=== PATIENT | female | born 1945 | race Caucasian/White ===

== ENCOUNTER → 2018-04-04 | Outpatient (CLI) | payer MEDICARE ==
--- NOTE | 2018-04-05 08:05 | US ---
EXAMINATION TYPE: US pelvis complete transvag DATE OF EXAM: 04/04/2018 COMPARISON: NONE CLINICAL HISTORY: Uterine Prolapse N81.2. TECHNIQUE: Transvaginal (TV) and Transabdominal (TA) . Transabdominal sonographic images of the pel vis were acquired. Transvaginal sonographic images were medically necessary to better assess the fol lowing anatomy: bulky uterus and ovaries. Date of LMP: postmenopausal, no HRT EXAM MEASUREMENTS: Uterus: 7.8 x 4.5 x 5.5 cm Endometrial Stripe: 0.7 cm Right Ovary: not identified Left Ovary: not identified 1. Uterus: Anteverted fibroid right anterior measures 2.7 x 2.8 x 3.2 cm 2. Endometrium: measures 0.7 cm, thickened. 3. Right Ovary: not identified 4. Left Ovary: not identified 5. Bilateral Adnexa: wnl 6. Posterior cul-de-sac: no free fluid IMPRESSION: 1. Diffuse heterogeneity of the myometrium with probable leiomyoma of the anterior fundal and right l ateral myometrium measuring 2.8 cm. 2. Thickened endometrium given the patient's postmenopausal status. Considerations are for endometria l hyperplasia, endometrial polyp or mass. Direct visualization is recommended.
== END | disposition home or self-care (01) ==
LOC: RADUSWWP 15:24
PROVIDERS: ATTEND Obstetrics & Gynecology
DX: N81.2 Incomplete uterovaginal prolapse (principal)
CPT/HCPCS: 76830; 76856

== ENCOUNTER → 2018-06-18 | Outpatient (CLI) | payer MEDICARE ==
[2018-06-18 13:11] LABS: Basophils # (A) 0.1 k/uL (0-0.2); Basophils % (A) 1 %; Eosinophils # (A) 0.2 k/uL (0-0.7); Eosinophils % (A) 2 %; HCT 41.3 % (34.0-46.0); HGB 13.8 gm/dL (11.4-16.0); Lymphocytes # (A) 3.5 k/uL (1.0-4.8); Lymphocytes % (A) 34 %; MCHC 33.4 g/dL (31.0-37.0); MCV 92.8 fL (80.0-100.0); Mean Platelet Volume 6.8; Monocytes # (A) 0.7 k/uL (0-1.0); Monocytes % (A) 6 %; Neutrophils # (A) 5.8 k/uL (1.3-7.7); Neutrophils % (A) 55 %; Platelet Count 288 k/uL (150-450); RBC 4.45 m/uL (3.80-5.40); WBC 10.5 k/uL (3.8-10.6)
[2018-06-18 13:13] LABS: Calcium 10.3 mg/dL (8.4-10.2); Potassium 4.5 mmol/L (3.5-5.1)
== END | disposition home or self-care (01) ==
LOC: LABPAT 11:42
PROVIDERS: ATTEND Obstetrics & Gynecology
DX: Z01.818 Encounter for other preprocedural examination (principal); Z01.812 Encounter for preprocedural laboratory examination
CPT/HCPCS: 36415; 80048; 85025; 86850; 86900; 86901; 93005

== ENCOUNTER 2018-06-24 05:50 | Inpatient (IN) | payer MEDICARE ==
[2018-06-19 11:35] VITALS: BMI 29.5
--- NOTE | 2018-06-23 16:51 | P.HPOB ---
History of Present Illness H&P Date: 06/23/18 Chief Complaint: Cystocele with uterine prolapse This is a 73-year-old female 2 para 2 who presents for total vaginal hysterectomy with anterior vaginal colporrhaphy secondary to cystocele and uterine prolapse. She has been evaluated by urology who does not recommend a sling. She does have urinary frequency and occasional urinary incontinence. She would like definitive surgical treatment for this problem. Obstetrical history: . History of 2 vaginal deliveries. Gynecologic history: No history of sexual transmitted diseases. She has had a tubal ligation. Social history: She is and retired. Review of Systems Constitutional: Denies chills, Denies fever Eyes: denies blurred vision, denies pain Ears, nose, mouth and throat: Denies headache, Denies sore throat Cardiovascular: Denies chest pain, Denies shortness of breath Respiratory: Denies cough Genitourinary: Reports prolapse symptoms, Reports stress incontinence, Reports urinary frequency, Denies dysuria, Denies hematuria Menstruation: Reports postmenopausal Musculoskeletal: Reports low back pain Integumentary: Denies pruritus, Denies rash Neurological: Denies numbness, Denies weakness Endocrine: Denies fatigue, Denies weight change Past Medical History Past Medical History: Cancer, Hyperlipidemia, Hypertension Additional Past Medical History / Comment(s): SKIN CANCER, degenerative disc disease-has had epidurals in the past History of Any Multi-Drug Resistant Organisms: None Reported Past Surgical History: Breast Surgery, Tubal Ligation Additional Past Surgical History / Comment(s): BREAST BIOPSY , PAIN CLINIC INJECTIONS , dilation and curettage with hysteroscopy, cervical conization Past Anesthesia/Blood Transfusion Reactions: No Reported Reaction Past Psychological History: No Psychological Hx Reported Smoking Status: Never smoker Past Alcohol Use History: Occasional Past Drug Use History: None Reported - Past Family History Mother Family Medical History: Cancer Additional Family Medical History / Comment(s): COLON CANCER Sister(s) Family Medical History: Cancer, Pulmonary Embolus Additional Family Medical History / Comment(s): BREAST Brother(s) Family Medical History: Cancer Additional Family Medical History / Comment(s): MELENOMA Son(s) Family Medical History: Cancer Additional Family Medical History / Comment(s): BASAL CELL Medications and Allergies Home Medications Medication Instructions Recorded Confirmed Type Aspirin 81 mg PO DAILY 06/19/18 06/19/18 History Atorvastatin [Lipitor] 80 mg PO HS 06/19/18 06/19/18 History Biotin 5,000 mcg PO DAILY 06/19/18 06/19/18 History Calcium Carbonate/Vitamin D3 1 each PO DAILY 06/19/18 06/19/18 History [Calcium 600-Vit D3 200 Tablet] Enalapril/Hydrochlorothiazide 1 each PO DAILY 06/19/18 06/19/18 History [Vaseretic 10-25 mg] Melatonin 10 mg PO HS 06/19/18 06/19/18 History Multivitamins, Thera [Multivitamin 1 tab PO DAILY 06/19/18 06/19/18 History (formulary)] Naproxen Sodium 550 mg PO HS 06/19/18 06/19/18 History Niacin 500 mg PO DAILY 06/19/18 06/19/18 History Turmeric Root Extract [Turmeric] 500 mg PO DAILY 06/19/18 06/19/18 History Allergies Allergy/AdvReac Type Severity Reaction Status Date / Time No Known Allergies Allergy Verified 06/19/18 10:54 Exam Osteopathic Statement: *. No significant issues noted on an osteopathic structural exam other than those noted in the History and Physical/Consult. HEENT: Within normal limits Heart: Regular rate and rhythm Lungs: Clear to auscultation bilaterally Abdomen: Soft, nontender Pelvic exam: Grade 3 cystocele and grade 2 uterine prolapse are noted with no rectocele noted. No adnexal masses or tenderness are noted. Rectal exam: External hemorrhoids Assessment and Plan (1) Cystocele with uterine prolapse Status: Acute Code(s): N81.4 - UTEROVAGINAL PROLAPSE, UNSPECIFIED SNOMED Code(s): 559313583 Plan: Proceed with total vaginal hysterectomy with anterior vaginal colporrhaphy. I have discussed the risks, benefits, and alternative therapies for the above- mentioned procedure and for both sedation/anesthesia as well as necessary blood products administration, if indicated, as they pertain to this patient. The patient has indicated her understanding and acceptance of the risks and procedures discussed.
[~2018-06-24 05:50] MED LIST: ceFAZolin IN SWFI 2 GM/20 ML SYRINGE IVP ONE
[2018-06-24] MEDS ORDERED: MIDAZOLAM 2 MG/2 ML VIAL IV PRN (06:02)
[2018-06-24] MEDS ORDERED: ONDANSETRON 4 MG/2 ML VIAL IVP ONE (06:02)
[2018-06-24] MEDS ORDERED: HYDROmorphone 0.5 MG/0.5 ML SYRINGE IVP PRN (06:02)
[2018-06-24] MEDS ORDERED: DEXAMETHASONE SOD PHOSPHATE 10 MG/ML 1 ML VIAL IV ONE (06:02)
[2018-06-24] MEDS: LACTATED RINGERS 1,000 ML IV SCH ×2 (06:33→15:24)
[2018-06-24] MEDS ORDERED: LIDOCAINE 1% 20 ML VIAL (10MG/ML) FOR IV START INTRADERMA ONE (06:34)
[2018-06-24] MEDS ORDERED: SUCCINYLCHOLINE CHLORIDE 100 MG/5 ML SYR IV ONE (07:30)
[2018-06-24] MEDS ORDERED: MORPHINE SULFATE (PF) 0.3 MG/0.3 ML SYR ONE (07:30)
[2018-06-24] MEDS ORDERED: PROPOFOL 10 MG/ML 20 ML VIAL IV ONE (07:30)
[2018-06-24] MEDS ORDERED: MIDAZOLAM 2 MG/2 ML VIAL ONE (07:30)
[2018-06-24] MEDS ORDERED: fentaNYL (PF) 50 MCG/ML 2 ML AMP ONE (07:30)
[2018-06-24] MEDS ORDERED: HYDROmorphone (PF) 1 MG/ML ONE (07:30)
[2018-06-24] MEDS ORDERED: LIDOCAINE 1% INJ 10MG/ML (20 ML MDV) ONE (07:30)
[2018-06-24] MEDS ORDERED: EPINEPHrine 1 MG/ML 1 ML AMP IV ONE (07:48)
[2018-06-24] MEDS ORDERED: BACITRACIN 500 UNIT/GM OINT 28.4 GM TUBE TOPICAL ONE (07:55)
[2018-06-24] MEDS ORDERED: LACTATED RINGERS 1,000 ML IV ONE ×2 (08:23)
--- NOTE | 2018-06-24 08:35 | P.OP ---
Date of Procedure: 06/24/18 Preoperative Diagnosis: Uterine prolapse with cystocele Postoperative Diagnosis: Same Procedure(s) Performed: Total vaginal hysterectomy with anterior vaginal colporrhaphy Anesthesia: GETA, spinal (Duramorph) Surgeon: Callie Barrera Technology Professional #1: Elian Seals Estimated Blood Loss (ml): 20 Pathology: other (Uterus with cervix, vaginal mucosa) Condition: stable Disposition: floor Indications for Procedure: This is a 73-year-old female 2 para 2 who presents for total vaginal hysterectomy with anterior vaginal colporrhaphy secondary to cystocele and uterine prolapse. She has been evaluated by urology who does not recommend a sling. She does have urinary frequency and occasional urinary incontinence. She would like definitive surgical treatment for this problem. Operative Findings: Grade 3 cystocele and grade 2 uterine prolapse are noted. Minimal rectocele is noted. Neither ovary is visualized. Description of Procedure: The patient is taken the operating room where she is placed in the dorsal lithotomy position. She is prepped and draped in the normal sterile fashion. Next a weighted speculum was placed in the patient's vagina and a right angle retractor was used to visualize the cervix. The anterior lip of the cervix is grasped with a single-tooth tenaculum. Next the cervix was circumferentially injected with one amp of epinephrine to 150 mL of normal saline. Next the cervix was circumscribed with a scalpel. The vaginal mucosa was pushed away from the cervix with a sponge. Next the uterosacral ligaments are clamped on either side with a Nayeli clamp, cut with Byrd scissors, and then sutured with 0 Vicryl suture in a Nayeli transfixion stitch and then held on either side with a straight hemostat. Next the posterior peritoneal reflection was identified and entered sharply with Byrd scissors. The edges of the vaginal mucosa was then tagged with 0 Vicryl suture and held with a curved hemostat for identification. Next a longbilled weighted speculum was placed through the posterior peritoneal reflection. Next the cardinal ligaments were clamped on either side with Nayeli clamps, cut with Byrd scissors, and then sutured with 0 Vicryl suture in Nayeli transfixion stitches and cut. Next the vesicouterine peritoneum reflection is identified and entered sharply with Metzenbaum scissors. A right angle bladder retractor is then used to retract the bladder. The uterine arteries are clamped on either side with Nayeli clamps, cut with Byrd scissors, and then sutured with 0 Vicryl suture in Nayeli transfixion stitches. The round ligament is also clamped on either side with a Nayeli clamp , cut with Byrd scissors, and sutured with 0 Vicryl suture in Nayeli transfixion stitches. Next the uterine ovarian ligament and tube were clamped on either side with a Nayeli clamp, cut with Byrd scissors, and then sutured with 0 Vicryl suture in a [id number] stitch, flashed, and then free tied with another suture of 0 Vicryl suture. These pedicles were held with a straight Diya for identification. The uterus is removed from the field. Excellent hemostasis is noted. Next the peritoneum is closed with 0 Vicryl suture in a pursestring fashion incorporating all the held ligaments. Again neither ovary was visualized prior to closing the vaginal cuff area. Both tubes are visualized and appeared normal. Next the uterine ovarian ligaments are tied together in the middle and cut. Next attention was turned to the cystocele repair. The edges of the vaginal mucosa are held with 2 Allis clamps. Next injection of the same epinephrine solution is injected underneath the mucosa upwards towards the urethra. Metzenbaum scissors were used to dissect underneath the vaginal mucosa and cut along the way up to just below the urethra. Sharp and blunt dissection are used to dissect the bladder away from the vaginal mucosa. Once the bladder is freed, the cystocele is reduced with 0 Vicryl suture in [id number] stitches on either side of the cystocele. Next the edges of the vaginal mucosa are trimmed with Metzenbaum scissors. Next the vaginal mucosa is sutured with 0 Vicryl suture in a running locked fashion incorporating the vaginal cuff. The uterosacral ligaments were also tied together in the midline prior to completely closing the vaginal cuff. Excellent hemostasis is noted. The Mcbride catheter is inserted and clear urine is noted. Next the vagina is packed with one-inch iodoform gauze with bacitracin ointment. All sponge and needle counts are correct and the patient is then taken to recovery room in stable condition.
[2018-06-24] MEDS ORDERED: NALBUPHINE 10 MG/ML VIAL (10ML MDV) IV PRN (10:00)
[2018-06-24] MEDS ORDERED: PROMETHAZINE INJ 6.25 MG in SODIUM CHLORIDE 0.9% 50 ML IVPB PRN (10:00)
[2018-06-24] MEDS ORDERED: NALOXONE 0.4 MG/ML 1 ML VIAL IV PRN (10:00)
[2018-06-24] MEDS ORDERED: MORPHINE SULFATE 2 MG/ML SYRINGE IVP PRN (10:00)
[2018-06-24] MEDS ORDERED: METOCLOPRAMIDE 5 MG/ML 2 ML VIAL IVP PRN ×2 (10:00→10:20)
[2018-06-24] MEDS ORDERED: KETOROLAC 30 MG/ML 1 ML VIAL IVP PRN (10:20)
[2018-06-24] MEDS ORDERED: SIMETHICONE 80 MG CHEWABLE PO PRN (10:20)
[2018-06-24] MEDS ORDERED: diphenhydrAMINE 50 MG/ML 1 ML VIAL IVP PRN (10:20)
[2018-06-24] MEDS ORDERED: ONDANSETRON 4 MG/2 ML VIAL IVP PRN (10:20)
[2018-06-24] MEDS ORDERED: ZOLPIDEM 5 MG TAB PO PRN (10:20)
[2018-06-24] MEDS ORDERED: Acetaminophen-Codeine 300-30mg TAB PO PRN ×2 (10:20)
[2018-06-24] MEDS ORDERED: IBUPROFEN 600 MG TAB PO PRN (10:20)
[2018-06-24] MEDS: SENNOSIDES-DOCUSATE SODIUM 1 EACH TAB PO SCH ×2 (10:47→20:42)
[2018-06-24] MEDS: LISINOPRIL-HCTZ 20-25 MG 1 EACH TAB PO SCH (15:24)
[2018-06-24] MEDS: diphenhydrAMINE 50 MG/ML 1 ML VIAL IVP PRN ×2 (15:29→22:27)
[2018-06-24] MEDS ORDERED: ATORVASTATIN 80 MG TAB PO SCH (21:00)
[2018-06-25 07:20] LABS: Basophils # (A) 0.1 k/uL (0-0.2); Basophils % (A) 0 %; Eosinophils # (A) 0.2 k/uL (0-0.7); Eosinophils % (A) 1 %; HCT 36.3 % (34.0-46.0); HGB 12.1 gm/dL (11.4-16.0); Lymphocytes # (A) 3.7 k/uL (1.0-4.8); Lymphocytes % (A) 24 %; MCH 31.3 pg (25.0-35.0); MCHC 33.5 g/dL (31.0-37.0); MCV 93.5 fL (80.0-100.0); Mean Platelet Volume 6.6; Monocytes # (A) 0.8 k/uL (0-1.0); Monocytes % (A) 5 %; Neutrophils # (A) 10.5 k/uL (1.3-7.7); Neutrophils % (A) 68 %; Platelet Count 263 k/uL (150-450); RBC 3.88 m/uL (3.80-5.40); WBC 15.5 k/uL (3.8-10.6)
--- NOTE | 2018-06-25 08:43 | P.PN ---
Subjective Progress Note Date: 06/25/18 Principal diagnosis: Status post total vaginal hysterectomy with anterior vaginal repair postoperative day #1 Patient is doing well. She has ambulated a little bit. Her Mcbride catheter and packing were removed this morning. She has not urinated yet. Pain is 0 at this time. Bleeding has been minimal. She is passing flatus but no bowel movement yet. Objective - Vital Signs Vital signs: Vital Signs Temp 98.1 F 06/25/18 06:00 Pulse 90 06/25/18 06:00 Resp 16 06/25/18 07:00 BP 150/79 06/25/18 06:00 Pulse Ox 95 06/24/18 20:00 Intake & Output 06/24/18 06/25/18 06/25/18 18:59 06:59 18:59 Intake Total 2200 80 Output Total 420 1075 Balance 1780 -995 Weight 75.75 kg Intake: IV 1100 Intake, IV Titration 500 80 Amount Lactated Ringers 1,000 ml 500 80 @ 20 mls/hr IV .Q24H [facility] Rx#:[id number] Oral 600 Output: Urine 400 1075 Uretheral (Mcbride) 800 Estimated Blood Loss 20 - Constitutional General appearance: Present: no acute distress - Gastrointestinal General gastrointestinal: Present: normal bowel sounds. Absent: tenderness - Genitourinary Genitourinary Comment(s): Alicia-pad shows scant serosanguineous discharge - Labs CBC & Chem 7: 06/25/18 06:59 Labs: Abnormal Lab Results - Last 24 Hours (Table) 06/25/18 Range/Units 06:59 WBC 15.5 H (3.8-10.6) k/uL Neutrophils # 10.5 H (1.3-7.7) k/uL Assessment and Plan Assessment: Status post total vaginal hysterectomy with anterior vaginal colporrhaphy postoperative day #1 (1) Cystocele with uterine prolapse Current Visit: No Status: Acute Code(s): N81.4 - UTEROVAGINAL PROLAPSE, UNSPECIFIED SNOMED Code(s): 951419661 Plan: Will discontinue IV. Will perform bladder scan after her urination to make sure she has low residual. Once she is able to urinate and her pain is well controlled, will anticipate discharge probably later today.
[2018-06-25] MEDS: SENNOSIDES-DOCUSATE SODIUM 1 EACH TAB PO SCH (09:00)
[2018-06-25] MEDS: LISINOPRIL-HCTZ 20-25 MG 1 EACH TAB PO SCH (09:00)
--- NOTE | 2018-06-25 10:16 | P.PN ---
Progress Note - Text Anesthesia POD 1. Patient is status post Total vaginal hysterectomy with anterior vaginal colporrhaphy under general endotracheal anesthesia with intra- thecal preservative free morphine 300 g. Mild pruritus, good post-op analgesia , and no headache or other complication.
--- NOTE | 2018-06-25 13:23 | P.DS ---
Providers Date of admission: 06/24/18 05:50 Expected date of discharge: 06/25/18 Attending physician: Callie Barrera Primary care physician: Arley Rosenthal - Discharge Diagnosis(es) (1) Cystocele with uterine prolapse Current Visit: No Status: Acute Hospital Course: This is a 73-year-old female who presented for total vaginal hysterectomy with anterior vaginal colporrhaphy on 06/24/2018. Postoperatively she has done well. She is ambulating. She is urinating without difficulty. Her latest residual was 106 mL's. She also has been having bowel movements. Pain is none. Bleeding is minimal. She is anxious to go home today. Vital signs are stable. Abdomen is soft with positive bowel sounds 4. Alicia-pad shows minimal serosanguineous discharge. Impression is status post total vaginal hysterectomy with anterior vaginal colporrhaphy postoperative day #1. Plan is to discharge home today. Routine postoperative instructions are given. She will be given a prescription for ibuprofen 600 mg every 6 hours as needed for pain #60. She is advised to follow up in the office in approximately 1 week for a postoperative check. She is advised to call the office if she has any further questions or concerns prior to her appointment time. Procedures: Total vaginal hysterectomy with anterior vaginal colporrhaphy on 06/24/2018 Patient Condition at Discharge: Stable Plan - Discharge Summary Discharge Rx Participant: No New Discharge Prescriptions: New Ibuprofen [Motrin] 600 mg PO Q6HR PRN #60 tab PRN Reason: Mild Discomfort Continue Multivitamins, Thera [Multivitamin (formulary)] 1 tab PO DAILY Turmeric Root Extract [Turmeric] 500 mg PO DAILY Calcium Carbonate/Vitamin D3 [Calcium 600-Vit D3 200 Tablet] 1 tab PO DAILY Niacin 500 mg PO DAILY Biotin 5,000 mcg PO DAILY Naproxen Sodium 550 mg PO HS Atorvastatin [Lipitor] 80 mg PO HS Enalapril/Hydrochlorothiazide [Vaseretic 10-25 mg] 1 tab PO DAILY Aspirin 81 mg PO DAILY Melatonin 10 mg PO HS Discharge Medication List Aspirin 81 mg PO DAILY 06/19/18 [History] Atorvastatin [Lipitor] 80 mg PO HS 06/19/18 [History] Biotin 5,000 mcg PO DAILY 06/19/18 [History] Calcium Carbonate/Vitamin D3 [Calcium 600-Vit D3 200 Tablet] 1 tab PO DAILY [History] Enalapril/Hydrochlorothiazide [Vaseretic 10-25 mg] 1 tab PO DAILY 06/19/18 [ History] Melatonin 10 mg PO HS 06/19/18 [History] Multivitamins, Thera [Multivitamin (formulary)] 1 tab PO DAILY 06/19/18 [History ] Naproxen Sodium 550 mg PO HS 06/19/18 [History] Niacin 500 mg PO DAILY 06/19/18 [History] Turmeric Root Extract [Turmeric] 500 mg PO DAILY 06/19/18 [History] Ibuprofen [Motrin] 600 mg PO Q6HR PRN #60 tab 06/25/18 [Rx] Follow up Appointment(s)/Referral(s): Callie Barrera DO [Doctor of Osteopathic Medicine] - 1 Week Activity/Diet/Wound Care/Special Instructions: No heavy lifting. May shower, but no tub baths area no intercourse. Diet as tolerated. Discharge Disposition: HOME SELF-CARE
[2018-06-25 16:45] VITALS: BP 135/72; PULSE 84; TEMP 98.2
[2018-06-25 17:01] VITALS: RESP 16
== END 2018-06-25 15:15 | disposition home or self-care (01) | DRG 743 ==
LOC: 2ORMAIN 05:50 → 4FBP 09:17
PROVIDERS: ADMIT Obstetrics & Gynecology; ATTEND Obstetrics & Gynecology
PROC: 0JQC3ZZ Repair Pelvic Region Subcutaneous Tissue and Fascia, Percutaneous Approach (ICD-10-PCS; principal; 2018-06-24 07:30)
PROC: 0UTC7ZZ Resection of Cervix, Via Natural or Artificial Opening (ICD-10-PCS; principal; 2018-06-24 07:30)
PROC: 0UT97ZZ Resection of Uterus, Via Natural or Artificial Opening (ICD-10-PCS; principal; 2018-06-24 07:30)
DX: N81.4 Uterovaginal prolapse, unspecified (principal); E78.5 Hyperlipidemia, unspecified; I10 Essential (primary) hypertension; R32 Unspecified urinary incontinence; Z79.82 Long term (current) use of aspirin; Z80.0 Family history of malignant neoplasm of digestive organs; Z85.828 Personal history of other malignant neoplasm of skin
CPT/HCPCS: 85025; 86850; 86900; 86901; 88302; 88305; 88307

== ENCOUNTER → 2018-09-06 | Outpatient (CLI) | payer MEDICARE ==
--- NOTE | 2018-09-13 07:57 | MM ---
Reason for exam: screening (asymptomatic). Last mammogram was performed 1 year and 1 month ago. History: Patient is postmenopausal, has history of high-risk lesion on a previous biopsy at age 68, and has history of other cancer at age 53. Family history of breast cancer in sister at age 62. Benign MG stereo VAD BX LT of the left breast, August 16, 2015. Benign left breast needle localization of both breasts, June 18, 2013. High risk US LT VAD breast biopsy of the left breast, May 22, 2013. Benign right mammotome panel of the right breast, April 03, 2012. Excisional biopsy of the right breast, February 28, 2007. Took estrogen for 6 years beginning at age 51. MG 3D Screening Mammo W/Cad Bilateral CC and MLO view(s) were taken. Prior study comparison: August 14, 2017, bilateral MG 3d screening mammo w/cad. July 28, 2016, bilateral MG 3d diag mammo w/cad [facility]. Bilateral previous mammotome biopsies. Chronic nodularity left breast. No significant changes when compared with prior studies. ASSESSMENT: Benign, BI-RAD 2 RECOMMENDATION: Routine screening mammogram of both breasts in 1 year.
== END | disposition home or self-care (01) ==
LOC: RADMAMWWP 10:57
PROVIDERS: ATTEND Obstetrics & Gynecology
DX: Z12.31 Encounter for screening mammogram for malignant neoplasm of breast (principal)
CPT/HCPCS: 77063; 77067

== ENCOUNTER → 2019-09-11 | Outpatient (CLI) | payer MEDICARE ==
--- NOTE | 2019-09-12 11:11 | MM ---
Reason for exam: screening (asymptomatic). Last mammogram was performed 1 year ago. History: Patient is postmenopausal, has history of high-risk lesion on a previous biopsy at age 68, and has history of other cancer at age 53. Family history of breast cancer in sister at age 62. Benign MG stereo VAD BX LT of the left breast, August 16, 2015. Benign left breast needle localization of both breasts, June 18, 2013. High risk US LT VAD breast biopsy of the left breast, May 22, 2013. Benign right mammotome panel of the right breast, April 03, 2012. Excisional biopsy of the right breast, February 28, 2007. Took estrogen for 6 years beginning at age 51. Physical Findings: A clinical breast exam by your physician is recommended on an annual basis and results should be correlated with mammographic findings. MG 3D Screening Mammo W/Cad Bilateral CC and MLO view(s) were taken. Prior study comparison: September 06, 2018, bilateral MG 3d screening mammo w/cad. August 14, 2017, bilateral MG 3d screening mammo w/cad. The breast tissue is heterogeneously dense. This may lower the sensitivity of mammography. Benign appearing bilateral calcifications. No suspicious abnormality. Bilateral biopsy markers. No significant changes when compared with prior studies. ASSESSMENT: Benign, BI-RAD 2 RECOMMENDATION: Routine screening mammogram of both breasts in 1 year.
== END | disposition home or self-care (01) ==
LOC: RADMAMWWP 11:02
PROVIDERS: ATTEND Obstetrics & Gynecology
DX: Z12.31 Encounter for screening mammogram for malignant neoplasm of breast (principal)
CPT/HCPCS: 77063; 77067

== ENCOUNTER → 2020-09-13 | Outpatient (CLI) | payer MEDICARE ==
--- NOTE | 2020-09-14 12:09 | MM ---
Reason for exam: screening (asymptomatic). Last mammogram was performed 1 year ago. History: Patient is postmenopausal, has history of high-risk lesion on a previous biopsy at age 68, and has history of other cancer at age 53. Family history of breast cancer in sister at age 62. Benign MG stereo VAD BX LT of the left breast, August 16, 2015. Benign left breast needle localization of both breasts, June 18, 2013. High risk US LT VAD breast biopsy of the left breast, May 22, 2013. Benign right mammotome panel of the right breast, April 03, 2012. Excisional biopsy of the right breast, February 28, 2007. Took estrogen for 6 years beginning at age 51. Physical Findings: A clinical breast exam by your physician is recommended on an annual basis and results should be correlated with mammographic findings. MG 3D Screening Mammo W/Cad Bilateral CC and MLO view(s) were taken. Prior study comparison: September 11, 2019, bilateral MG 3d screening mammo w/cad. September 06, 2018, bilateral MG 3d screening mammo w/cad. The breast tissue is heterogeneously dense. This may lower the sensitivity of mammography. There is chronic nodularity in the left breast. No significant changes when compared with prior studies. ASSESSMENT: Benign, BI-RAD 2 RECOMMENDATION: Routine screening mammogram of both breasts in 1 year.
== END | disposition home or self-care (01) ==
LOC: RADMAMWWP 10:55
PROVIDERS: ATTEND Obstetrics & Gynecology
DX: Z12.31 Encounter for screening mammogram for malignant neoplasm of breast (principal)
CPT/HCPCS: 77063; 77067

== ENCOUNTER → 2021-10-04 | Outpatient (CLI) | payer MEDICARE ==
--- NOTE | 2021-10-06 11:08 | MM ---
Reason for exam: screening (asymptomatic). Last mammogram was performed 1 year and 1 month ago. History: Patient is postmenopausal, has history of high-risk lesion on a previous biopsy at age 68, and has history of other cancer at age 53. Family history of breast cancer in sister at age 62. Benign MG stereo VAD BX LT of the left breast, August 16, 2015. Benign left breast needle localization of both breasts, June 18, 2013. High risk US LT VAD breast biopsy of the left breast, May 22, 2013. Benign right mammotome panel of the right breast, April 03, 2012. Excisional biopsy of the right breast, February 28, 2007. Took estrogen for 6 years beginning at age 51. Physical Findings: A clinical breast exam by your physician is recommended on an annual basis and results should be correlated with mammographic findings. MG 3D Screening Mammo W/Cad Bilateral CC and MLO view(s) were taken. Prior study comparison: September 13, 2020, bilateral MG 3d screening mammo w/cad. September 11, 2019, bilateral MG 3d screening mammo w/cad. There are scattered fibroglandular densities. Previous mammotome biopsy in the right and left breast. There is chronic nodularity in the left breast. No significant changes when compared with prior studies. ASSESSMENT: Benign, BI-RAD 2 RECOMMENDATION: Routine screening mammogram of both breasts in 1 year.
== END | disposition home or self-care (01) ==
LOC: RADMAMWWP 15:49
PROVIDERS: ATTEND Obstetrics & Gynecology
DX: Z12.31 Encounter for screening mammogram for malignant neoplasm of breast (principal)
CPT/HCPCS: 77063; 77067

== ENCOUNTER → 2023-04-27 | Outpatient (CLI) | payer MEDICARE ==
--- NOTE | 2023-05-05 09:03 | MR ---
EXAMINATION TYPE: MR knee LT wo con DATE OF EXAM: 04/27/2023 COMPARISON: None HISTORY: Pain in Left knee, knee locks upon standing TECHNIQUE: Multiplanar, multisequence imaging of the left knee is performed without IV contrast. FINDINGS: The osseous structures are intact and there is no bone contusion or fracture. There is moderate to severe osteoarthritic change of the medial and lateral compartments of the knee greatest in medial compartment where there is significant thinning of the articular cartilages, hyper trophic spurring at the margins, and subchondral sclerosis particularly in the medial compartment. Th ere is mild to moderate chondromalacia patella but the thickness of the patellar cartilage is within normal limits. There is a small to moderate joint effusion. There is a 3.8 x 1 cm Kelly's cyst with septations. The cruciate and collateral ligaments are intact. The posterior horn and body medial meniscus is markedly thinned and degenerated but there is an obliq ue tear of the posterior horn of the medial meniscus extending to the inferior surface. There is a te ar of the anterior horn of the lateral meniscus. IMPRESSION: 1. 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 2. Small to moderate joint effusion with a Kelly's cyst. 3. Tears of both the medial and lateral menisci. 4. No ligamentous injury.
== END | disposition home or self-care (01) ==
LOC: RADMRIMAIN 17:01
PROVIDERS: ATTEND Family Medicine
DX: M17.12 Unilateral primary osteoarthritis, left knee (principal); M25.462 Effusion, left knee; M23.322 Other meniscus derangements, posterior horn of medial meniscus, left knee; M23.352 Other meniscus derangements, posterior horn of lateral meniscus, left knee

== ENCOUNTER → 2023-09-12 | Outpatient (CLI) | payer MEDICARE ==
[2023-09-12 15:05] LABS: BUN/Creat Ratio 20.73 Ratio (12.00-20.00); Blood Urea Nitrogen 22.8 mg/dL (9.0-27.0); Calcium 10.7 mg/dL (8.7-10.3); Carbon Dioxide 24.6 mmol/L (21.6-31.8); Chloride 101 mmol/L (96-109); Glucose 96 mg/dL (70-110); Potassium 4.3 mmol/L (3.5-5.5); Sodium 139 mmol/L (135-145)
[2023-09-12 15:37] LABS: Basophils # (A) 0.06 X 10*3/uL (0.00-0.10); Basophils % (A) 0.6 %; Eosinophils # (A) 0.17 X 10*3/uL (0.04-0.35); Eosinophils % (A) 1.7 %; HCT 39.1 % (37.2-46.3); HGB 13.1 g/dL (12.0-15.0); Lymphocytes # (A) 3.77 X 10*3/uL (0.90-5.00); Lymphocytes % (A) 37.8 %; MCH 31.6 pg (27.0-32.0); MCHC 33.5 g/dL (32.0-37.0); MCV 94.4 FL (80.0-97.0); Mean Platelet Volume 10.1 FL (9.5-12.2); Monocytes # (A) 1.02 X 10*3/uL (0.20-1.00); Monocytes % (A) 10.2 %; NRBC Per 100 WBC 0 X 10*3/uL (0.00-0.01); Neutrophils # (A) 4.91 X 10*3/uL (1.80-7.70); Neutrophils % (A) 49.3 %; Platelet Count 247 X 10*3/uL (140-440); RBC 4.14 X 10*6/uL (4.10-5.20); RDW 13.2 % (11.5-14.5); WBC 9.97 X 10*3/uL (4.50-10.00)
== END | disposition home or self-care (01) ==
LOC: LABWHC1 10:50
PROVIDERS: ATTEND Obstetrics & Gynecology
DX: Z01.812 Encounter for preprocedural laboratory examination (principal); I44.0 Atrioventricular block, first degree
CPT/HCPCS: 36415; 80048; 85025; 86850; 86900; 86901; 93005

== ENCOUNTER 2023-09-20 05:47 | Day surgery (SDC) | payer MEDICARE ==
--- NOTE | 2023-09-19 17:49 | P.HPOB ---
History of Present Illness H&P Date: 09/19/23 Chief Complaint: Symptomatic rectocele This is a 78-year-old female 2 para 2 who presents for posterior vaginal colporrhaphy due to a symptomatic rectocele. She complains of a bulge and pressure but no trouble with her bowel movements. She underwent a total vaginal hysterectomy with anterior vaginal colporrhaphy in 2018 and has noticed the symptoms worsening since that time. She does have occasional urinary incontinence but this is not that bothersome to her. Obstetrical history: G2, P2. History of 2 vaginal deliveries. Gynecologic history: No history of sexually transmitted diseases. She does have a history of a hysterectomy in 2018. Social history: She is . She is retired. Review of Systems Constitutional: Denies chills, Denies fever Eyes: denies blurred vision, denies pain Ears, nose, mouth and throat: Denies headache, Denies sore throat Cardiovascular: Denies chest pain, Denies shortness of breath Respiratory: Denies cough Gastrointestinal: Denies abdominal pain, Denies constipation, Denies diarrhea, Denies nausea, Denies vomiting Genitourinary: Reports pelvic pain, Reports prolapse symptoms, Reports stress incontinence Menstruation: Reports post hysterectomy, Reports postmenopausal Musculoskeletal: Reports low back pain, Reports myalgias Integumentary: Denies pruritus, Denies rash Neurological: Denies numbness, Denies weakness Psychiatric: Denies anxiety, Denies depression Past Medical History Past Medical History: Cancer, Hyperlipidemia, Hypertension, Osteoarthritis (OA) Additional Past Medical History / Comment(s): hx SKIN CANCER, degenerative disc disease-has had epidurals in the past, left knee OA History of Any Multi-Drug Resistant Organisms: None Reported Past Surgical History: Breast Surgery, Hysterectomy (Vaginal), Tubal Ligation Additional Past Surgical History / Comment(s): BREAST BIOPSY , PAIN CLINIC INJECTIONS , dilation and curettage with hysteroscopy, cervical conization,. colonoscopy Past Anesthesia/Blood Transfusion Reactions: No Reported Reaction Additional Past Anesthesia/Blood Transfusion Reaction / Comment(s): no blood transfusions Past Psychological History: No Psychological Hx Reported Smoking Status: Never smoker Past Alcohol Use History: Occasional Past Drug Use History: None Reported - Past Family History Mother Family Medical History: Cancer Additional Family Medical History / Comment(s): COLON CANCER Sister(s) Family Medical History: Cancer, Pulmonary Embolus Additional Family Medical History / Comment(s): BREAST Brother(s) Family Medical History: Cancer Additional Family Medical History / Comment(s): MELENOMA Son(s) Family Medical History: Cancer Additional Family Medical History / Comment(s): BASAL CELL Medications and Allergies Home Medications Medication Instructions Recorded Confirmed Type Atorvastatin [Lipitor] 80 mg PO HS 06/19/18 09/13/23 History Biotin [Biotin Disolve] 5,000 mcg PO DAILY 06/19/18 09/13/23 History Calcium Carbonate/Vitamin D3 1 tab PO DAILY 06/19/18 09/13/23 History [Calcium 600-Vit D3 5 Mcg (200 Iu)] Enalapril/Hydrochlorothiazide 1 tab PO DAILY 06/19/18 09/13/23 History [Vaseretic 10-25 mg] Melatonin [Melatonin ER] 10 mg PO HS 06/19/18 09/13/23 History Multivitamins, Thera [Multivitamin 1 tab PO DAILY 06/19/18 09/13/23 History (formulary)] Naproxen Sodium 550 mg PO HS 06/19/18 09/13/23 History Turmeric Root Extract [Turmeric] 500 mg PO DAILY 06/19/18 09/13/23 History Allergies Allergy/AdvReac Type Severity Reaction Status Date / Time No Known Allergies Allergy Verified 09/13/23 10:40 Exam Osteopathic Statement: *. No significant issues noted on an osteopathic structural exam other than those noted in the History and Physical/Consult. HEENT: Within normal limits Heart: Regular rate and rhythm Lungs: Clear to auscultation bilaterally Abdomen: Soft, nontender Pelvic exam: Grade 3 rectocele noted. No adnexal masses or tenderness are noted. Extremities: Negative Homans Assessment and Plan (1) Rectocele Status: Acute Code(s): N81.6 - RECTOCELE SNOMED Code(s): 2879023 Plan: Proceed with posterior vaginal colporrhaphy. I have discussed the risks, benefits, and alternative therapies for the above- mentioned procedure and for both sedation/anesthesia as well as necessary blood products administration, if indicated, as they pertain to this patient. The patient has indicated her understanding and acceptance of the risks and procedures discussed.
[2023-09-20] MEDS ORDERED: ONDANSETRON 4 MG/2 ML VIAL IVP ONE (06:35)
[2023-09-20] MEDS ORDERED: DEXAMETHASONE SOD PHOSPHATE 4 MG/ML 1 ML VIAL IV ONE (06:35)
[2023-09-20] MEDS: LACTATED RINGERS 1,000 ML IV SCH ×2 (06:49→18:27)
[2023-09-20] MEDS ORDERED: MIDAZOLAM 2 MG/2 ML VIAL IV PRN (07:00)
[2023-09-20] MEDS ORDERED: HYDROmorphone 0.5 MG/0.5 ML SYRINGE IVP PRN (07:00)
[2023-09-20] MEDS ORDERED: PROPOFOL 10 MG/ML 20 ML VIAL IV ONE (07:18)
[2023-09-20] MEDS ORDERED: SUCCINYLCHOLINE CHLORIDE 200 MG/10 ML VIAL IV ONE (07:18)
[2023-09-20] MEDS ORDERED: fentaNYL (PF) 50 MCG/ML 2 ML AMP ONE (07:18)
[2023-09-20] MEDS ORDERED: KETOROLAC 15 MG/ML 1 ML VIAL ONE (07:18)
[2023-09-20] MEDS ORDERED: LIDOCAINE 1% INJ 10MG/ML (20 ML MDV) ONE (07:18)
[2023-09-20] MEDS ORDERED: BACITRACIN OINT 1 EACH PACKET TOPICAL ONE (07:53)
--- NOTE | 2023-09-20 08:03 | P.OP ---
Date of Procedure: 09/20/23 Preoperative Diagnosis: Symptomatic rectocele Postoperative Diagnosis: Same Procedure(s) Performed: Posterior vaginal colporrhaphy Anesthesia: [place] Surgeon: Callie Barrera Psychologist Personnel #1: Mark Chandler Estimated Blood Loss (ml): 10 Pathology: other (Vaginal mucosa) Condition: stable Disposition: floor Indications for Procedure: This is a 78-year-old female 2 para 2 who presents for posterior vaginal colporrhaphy due to a symptomatic rectocele. She complains of a bulge and pressure but no trouble with her bowel movements. She underwent a total vaginal hysterectomy with anterior vaginal colporrhaphy in 2018 and has noticed the symptoms worsening since that time. She does have occasional urinary incontinence but this is not that bothersome to her. Operative Findings: Grade 3 rectocele is noted. Grade 1 cystocele is noted. Vaginal atrophy is noted. Description of Procedure: The patient is taken to the operating room where she was placed in the dorsal lithotomy position. She is prepped and draped in the normal sterile fashion. An anterior vaginal retractor is used to visualize the vagina. 2 Allis clamps are placed at the introitus at the 4 and 8 o'clock position. Injection of 1 amp of epinephrine to 150 cc of normal saline is injected underneath the vaginal mucosa upwards towards the vaginal cuff along the posterior vaginal mucosa. Next a triangular-shaped piece of tissue was removed between the 2 Allis clamps with a scalpel. Metzenbaum scissors were used to dissect underneath the vaginal mucosa upwards towards the vaginal cuff. The edges of the vaginal mucosa are held with Allis clamps. Next the rectocele was dissected away from the vaginal mucosa. Sharp and blunt dissection. Most of this appeared to be enterocele. The enterocele/rectocele was then reduced using an 0 Vicryl suture in a pursestring fashion along the inner vaginal mucosa. This completely reviewed the defect. Next the edges of the vaginal mucosa are trimmed with Metzenbaum scissors. The vaginal mucosa is then sutured with 0 Vicryl suture in a running locked fashion to the introitus, then brought underneath the mucosa and along the subcutaneous tissue to the apex of the incision and then along the skin in a subcuticular fashion and tied at the introitus. Excellent hemostasis is noted. Mcbride catheter was inserted with clear urine noted. Vaginal packing is carried out with 1 inch iodoform gauze with bacitracin ointment. All instruments are correct and all sponge and needle counts are correct. The patient is then taken to recovery room in stable condition.
[2023-09-20] MEDS ORDERED: SIMETHICONE 80 MG CHEWABLE PO PRN (09:23)
[2023-09-20] MEDS ORDERED: ONDANSETRON 4 MG/2 ML VIAL IVP PRN (09:23)
[2023-09-20] MEDS ORDERED: ZOLPIDEM 5 MG TAB PO PRN (09:23)
[2023-09-20] MEDS ORDERED: METOCLOPRAMIDE 5 MG/ML 2 ML VIAL IVP PRN (09:23)
[2023-09-20] MEDS ORDERED: diphenhydrAMINE 50 MG/ML 1 ML VIAL IVP PRN (09:23)
[2023-09-20] MEDS ORDERED: KETOROLAC 15 MG/ML 1 ML VIAL IVP PRN (09:23)
[2023-09-20] MEDS: SENNOSIDES-DOCUSATE SODIUM 1 EACH TAB PO SCH ×2 (09:40→20:46)
[2023-09-20] MEDS ORDERED: ACETAMINOPHEN IV (For NPO) 1,000 MG in EMPTY BAG 1 BAG IVPB ONE (10:00)
[2023-09-20] MEDS: LISINOPRIL-HCTZ 20-25 MG 1 EACH TAB PO SCH (11:16)
[2023-09-20] MEDS ORDERED: ACETAMINOPHEN TAB 325 MG TAB PO PRN (18:22)
[2023-09-20] MEDS: IBUPROFEN 600 MG TAB PO PRN (20:46)
[2023-09-20 21:45] VITALS: RESP 16
[2023-09-21] MEDS: IBUPROFEN 600 MG TAB PO PRN ×2 (04:46→10:30)
[2023-09-21] MEDS ORDERED: ACETAMINOPHEN TAB 325 MG TAB PO PRN (07:31)
[2023-09-21 08:04] LABS: Basophils # (A) 0.1 k/uL (0-0.2); Basophils % (A) 0 %; Eosinophils # (A) 0.1 k/uL (0-0.7); Eosinophils % (A) 1 %; HCT 37.8 % (34.0-46.0); HGB 12.5 gm/dL (11.4-16.0); Lymphocytes # (A) 4.5 k/uL (1.0-4.8); Lymphocytes % (A) 24 %; MCHC 33.2 g/dL (31.0-37.0); MCV 96.5 fL (80.0-100.0); Monocytes # (A) 1.1 k/uL (0-1.0); Monocytes % (A) 6 %; Neutrophils # (A) 12.5 k/uL (1.3-7.7); Neutrophils % (A) 67 %; Platelet Count 220 k/uL (150-450); RBC 3.91 m/uL (3.80-5.40); RDW 13.4 % (11.5-15.5); WBC 18.7 k/uL (3.8-10.6)
[2023-09-21 08:14] VITALS: BP 143/64; PULSE 67; TEMP 98
--- NOTE | 2023-09-21 08:34 | P.DS ---
Providers Date of admission: 09/20/2023 Expected date of discharge: 09/21/23 Attending physician: Callie Barrera Primary care physician: Arley Rosenthal - Discharge Diagnosis(es) (1) Rectocele Current Visit: No Status: Acute Hospital Course: This is a 78-year-old female who underwent a posterior vaginal colporrhaphy on 09/20/2023. Her postoperative course has been uncomplicated. Her bleeding has been minimal. She has urinated without difficulty. She is passing flatus and bowel movement without difficulty. She is tolerating regular diet. Her pain has been well-controlled with ibuprofen. Vital signs are stable. Abdomen is soft with positive bowel sounds x 4. Alicia-pad shows scant serosanguineous discharge. Extremities show negative Homans. Impression is status post posterior vaginal colporrhaphy postoperative day #1. Plan is to discharge home today. Routine postoperative instructions are given. She will use [id number] pain medications as needed. She will return for a postoperative check in approximately 1 week. She is advised to call the office if she has any further questions or concerns prior to her appointment time. Procedures: Posterior vaginal colporrhaphy Patient Condition at Discharge: Stable Plan - Discharge Summary Discharge Rx Participant: No New Discharge Prescriptions: No Action Multivitamins, Thera [Multivitamin (formulary)] 1 tab PO DAILY Turmeric Root Extract [Turmeric] 500 mg PO DAILY Calcium Carbonate/Vitamin D3 [Calcium 600-Vit D3 5 Mcg (200 Iu)] 1 tab PO DAILY Biotin [Biotin Disolve] 5,000 mcg PO DAILY Naproxen Sodium 550 mg PO HS Atorvastatin [Lipitor] 80 mg PO HS Enalapril/Hydrochlorothiazide [Vaseretic 10-25 mg] 1 tab PO DAILY Melatonin [Melatonin ER] 10 mg PO HS Discharge Medication List Atorvastatin [Lipitor] 80 mg PO HS 06/19/18 [History] Biotin [Biotin Disolve] 5,000 mcg PO DAILY 06/19/18 [History] Calcium Carbonate/Vitamin D3 [Calcium 600-Vit D3 5 Mcg (200 Iu)] 1 tab PO DAILY 06/19/18 [History] Enalapril/Hydrochlorothiazide [Vaseretic 10-25 mg] 1 tab PO DAILY 06/19/18 [History] Melatonin [Melatonin ER] 10 mg PO HS 06/19/18 [History] Multivitamins, Thera [Multivitamin (formulary)] 1 tab PO DAILY 06/19/18 [Histo ry] Naproxen Sodium 550 mg PO HS 06/19/18 [History] Turmeric Root Extract [Turmeric] 500 mg PO DAILY 06/19/18 [History] Follow up Appointment(s)/Referral(s): Callie Barrera DO [Doctor of Osteopathic Medicine] - 1 Week Activity/Diet/Wound Care/Special Instructions: Activity as tolerated. Diet as tolerated. May shower, but no tub baths for 1 week. No intercourse for 6 weeks. No heavy lifting or repetitive motions. Discharge Disposition: HOME SELF-CARE
[2023-09-21] MEDS: SENNOSIDES-DOCUSATE SODIUM 1 EACH TAB PO SCH (10:07)
[2023-09-21] MEDS: LISINOPRIL-HCTZ 20-25 MG 1 EACH TAB PO SCH (10:07)
== END 2023-09-21 11:20 | disposition home or self-care (01) ==
LOC: OR 05:47 → 4FBP 08:53 → OR 09-21 11:20
PROVIDERS: ATTEND Obstetrics & Gynecology
DX: N81.6 Rectocele (principal); E78.5 Hyperlipidemia, unspecified; I10 Essential (primary) hypertension; Z79.899 Other long term (current) drug therapy; Z80.0 Family history of malignant neoplasm of digestive organs; Z85.828 Personal history of other malignant neoplasm of skin
CPT/HCPCS: 85025; 88302; 57250; J0171; J1100; J0690; J2405; J0131; J1170

== ENCOUNTER → 2023-10-18 | Outpatient (CLI) | payer MEDICARE ==
--- NOTE | 2023-10-18 20:55 | BD ---
EXAMINATION TYPE: Axial Bone Density DATE OF EXAM: 10/18/2023 CLINICAL HISTORY: 78 years old Female. ICD-10 CODE: M85.88 OTH DISRD OF BONE DENSI Height: 62 Weight: 173.6 FRAX RISK QUESTIONS: Alcohol (3 or more units per day): no Family History (Parent hip fracture): no Glucocorticoids (More than 3mos): no (Ex: prednisone, prednisolone, methylprednisolone, dexamethasone, and hydrocortisone). History of Fracture in Adulthood: no Secondary Osteoporosis: 1. Type 1 Diabetes: no 2. Hyperthyroidism: no 3. Menopause before 45: no 4. Malnutrition: no 5. Chronic liver disease: no Rheumatoid Arthritis: no Current Tobacco Use: no RISK FACTORS HISTORY OF: Surgery to Spine/Hip(right/left)/Wrist (right/left): no EXAM MEASUREMENTS: Bone mineral densitometry was performed using the [employer] System. Bone mineral density as measured about the Lumbar spine is: ----- L1-L4(G/cm2): 1.623 T Score Values are as follows: ----- L1: 2.4 ----- L2: 3.2 ----- L3: 4.5 ----- L4: 4.2 ----- L1-L4: 3.7 Z Score Values are as follows: ----- L1: 3.8 ----- L2: 4.6 ----- L3: 5.9 ----- L4: 5.6 ----- L1-L4: 5.1 Bone mineral density has: increased 1.2 % since study of: 10.17.21 Bone mineral density about the R hip (g/cm2): 0.895 Bone mineral density about the L hip (g/cm2): 0.891 T Score values are as follows: -----R Neck: -1.2 -----L Neck: -1.2 -----R Total: -0.9 -----L Total: -0.9 Z Score values are as follows: -----R Neck: 0.6 -----L Neck: 0.6 -----R Total: 0.7 -----L Total: 0.7 Bone mineral density has: decreased -4.3 % since study of: 2.21.22 FRAX%s: The graph provided illustrates a 11.8% chance for a major osteoporotic fx and a 2.4% chance f or the hips probability for fx in 10 years time. IMPRESSION: Osteopenia (T Score between -2.5 and -1). There is slightly increased risk of fracture and the patient may be considered for treatment. Re-Screen 2-5 years. NOTE: T-SCORE=SD OF THE YOUNG ADULT MEAN.
--- NOTE | 2023-10-19 10:38 | MM ---
Reason for Exam: Screening (asymptomatic). Last screening mammogram was performed 12 month(s) ago. Patient History: Menarche at age 11. First Full-Term at age 26. Hysterectomy at age 73. Postmenopausal. Other cancer, age 53. Estrogen for 6 years from age 51 until age 57. 02/28/2007, Excisional Biopsy on the Right side. 08/16/2015, Benign Core Biopsy on the left side. 06/18/2013, Bilateral Benign Excisional Biopsy. 05/22/2013, High risk Core Biopsy on the left side. 04/03/2012, Benign Core Biopsy on the right side. Sister had breast cancer, age 62. Risk Values: Gina 5 year model risk: 5.0%. NCI Lifetime model risk: 8.2%. Prior Study Comparison: 09/13/2020 Bilateral Screening Mammogram, [facility]. 10/04/2021 Bilateral Screening Mammogram, [facility]. 10/05/2022 Bilateral MG 3D screening mammo w/cad, [facility]. Tissue Density: The breast tissue is heterogeneously dense. This may lower the sensitivity of mammography. Findings: Analyzed By CAD. Irregular density with previous biopsy clip noted is a slightly more prominent on multiple prior exams recommend spot compression. Chronic nodularity in the outer margin of the left breast seen in the upper breast on the MLO view may be slightly increased in size recommend spot compression. No suspicious calcifications. Benign-appearing calcifications. Chronic nodularity and biopsy marker noted on the right. Asymmetric density lower margin left breast. Recommend spot compression. Overall Assessment: Incomplete: need additional imaging evaluation, BI-RAD 0 Management: Special View Mammogram of the left breast. . Patient should continue monthly self-breast exams. A clinical breast exam by your physician is recommended on an annual basis. This exam should not preclude additional follow-up of suspicious palpable abnormalities. Note on Gina scores and lifetime risk: 1. A Gina score greater than 3% is considered moderate risk. If this is the case, consider specialist referral to assess eligibility for a risk reducing agent. 2. If overall lifetime risk for the development of breast cancer is 20% or higher, the patient may qualify for future screening with alternating mammogram and breast MRI. Electronically signed and approved by: Roby Gonzalez M.D. Radiologis
== END | disposition home or self-care (01) ==
LOC: RADMAMWWP 12:39
PROVIDERS: ATTEND Obstetrics & Gynecology
DX: Z12.31 Encounter for screening mammogram for malignant neoplasm of breast (principal); M85.89 Other specified disorders of bone density and structure, multiple sites; Z80.3 Family history of malignant neoplasm of breast; Z78.0 Asymptomatic menopausal state
CPT/HCPCS: 77063; 77067; 77080

== ENCOUNTER → 2023-10-23 | Outpatient (CLI) | payer MEDICARE ==
--- NOTE | 2023-10-23 14:04 | MM ---
Reason for Exam: Additional evaluation requested from abnormal screening. Last screening mammogram was performed less than 1 month ago. Patient History: Menarche at age 11. First Full-Term at age 26. Hysterectomy at age 73. Postmenopausal. Other cancer, age 53. Estrogen for 6 years from age 51 until age 57. 02/28/2007, Excisional Biopsy on the Right side. 08/16/2015, Benign Core Biopsy on the left side. 06/18/2013, Bilateral Benign Excisional Biopsy. 05/22/2013, High risk Core Biopsy on the left side. 04/03/2012, Benign Core Biopsy on the right side. Sister had breast cancer, age 62. Risk Values: Gina 5 year model risk: 5.0%. NCI Lifetime model risk: 8.2%. Prior Study Comparison: 10/04/2021 Bilateral Screening Mammogram, [facility]. 10/05/2022 Bilateral MG 3D screening mammo w/cad, [facility]. 10/18/2023 Bilateral MG 3D screening mammo w/cad, [facility]. Tissue Density: Left: The breast tissue is heterogeneously dense. This may lower the sensitivity of mammography. Findings: Analyzed By CAD. Nodularity anterior left breast becomes less defined on additional views with appearance similar to prior exams. Focal asymmetry posterior upper outer quadrant left breast at the site microclip from prior biopsy also becomes less defined. Posterior six-month follow-up recommended. The third area, located inferiorly at a middle depth does not clearly persist on the lateral view. 6 month follow-up recommended given the appearance of these areas on the screening exam. Overall Assessment: Probably benign, BI-RAD 3 Management: Diagnostic Mammogram of the left breast in 6 months. See note below in regards to patient's increased 5 year Gina score. Results were given to the patient verbally at the time of exam. Patient should continue monthly self-breast exams. A clinical breast exam by your physician is recommended on an annual basis. This exam should not preclude additional follow-up of suspicious palpable abnormalities. Note on Gina scores and lifetime risk: 1. A Gina score greater than 3% is considered moderate risk. If this is the case, consider specialist referral to assess eligibility for a risk reducing agent. 2. If overall lifetime risk for the development of breast cancer is 20% or higher, the patient may qualify for future screening with alternating mammogram and breast MRI. Electronically signed and approved by: Cali Gutierrez M.D. Radiologist
== END | disposition home or self-care (01) ==
LOC: RADMAMWWP 13:25
PROVIDERS: ATTEND Obstetrics & Gynecology
DX: R92.332 Mammographic heterogeneous density, left breast (principal); Z80.3 Family history of malignant neoplasm of breast; Z78.0 Asymptomatic menopausal state
CPT/HCPCS: 77065; G0279; 77061

== ENCOUNTER → 2024-05-14 | Outpatient (CLI) | payer MEDICARE ==
--- NOTE | 2024-05-26 14:40 | MM ---
Reason for Exam: Follow-up at short interval from prior study. Last screening mammogram was performed 7 month(s) ago. Patient History: Menarche at age 11. First Full-Term at age 26. Hysterectomy at age 73. Postmenopausal. Other cancer, age 53. Estrogen for 6 years from age 51 until age 57. 02/28/2007, Excisional Biopsy on the Right side. 08/16/2015, Benign Core Biopsy on the left side. 06/18/2013, Bilateral Benign Excisional Biopsy. 05/22/2013, High risk Core Biopsy on the left side. 04/03/2012, Benign Core Biopsy on the right side. Sister had breast cancer, age 62. Risk Values: Gina 5 year model risk: 4.8%. NCI Lifetime model risk: 7.4%. Prior Study Comparison: 10/05/2022 Bilateral MG 3D screening mammo w/cad, [facility]. 10/18/2023 Bilateral MG 3D screening mammo w/cad, [facility]. 10/23/2023 Left MG 3D work up w/cad , [facility]. Tissue Density: Left: The breasts are heterogeneously dense, which may obscure small masses. Findings: Analyzed By CAD. The pattern is symmetrical. Nodular density upper outer anterior left breast appears stable. Area adjacent to the core marker appears less suspicious on the current exam. No suspicious inferior asymmetric density evident in the mediolateral oblique view. No suspicious groups of microcalcifications, spiculated or lobular masses, architectural distortion or other secondary signs of malignancy are mammographically apparent. Overall Assessment: Benign, BI-RAD 2 Management: Screening Mammogram of both breasts in 6 months. A negative mammogram report should not preclude additional follow up of suspicious palpable abnormalities. Patient should continue monthly self breast exam. A clinical breast exam by your physician is recommended on an annual basis and results should be correlated with mammographic findings. Note on Gina scores and lifetime risk: 1. A Gina score greater than 3% is considered moderate risk. If this is the case, consider specialist referral to assess eligibility for a risk reducing agent. 2. If overall lifetime risk for the development of breast cancer is 20% or higher, the patient may qualify for future screening with alternating mammogram and breast MRI. [facility], , 05/14/2024 10:38 AM. Electronically signed and approved by: Cash Harvey D.O. Radiologis
== END | disposition home or self-care (01) ==
LOC: RADMAMWWP 10:22
PROVIDERS: ATTEND Family Medicine
DX: R92.8 Other abnormal and inconclusive findings on diagnostic imaging of breast
CPT/HCPCS: 77061; 77065

== ENCOUNTER → 2024-12-12 | Outpatient (CLI) | payer MEDICARE ==
--- NOTE | 2024-12-15 08:21 | MM ---
Reason for Exam: Screening (asymptomatic). Last mammogram was performed 1 year(s) and 2 month(s) ago. Patient History: Menarche at age 11. First Full-Term at age 26. Hysterectomy at age 73. Postmenopausal. Other cancer, age 53. Estrogen for 6 years from age 51 until age 57. 02/28/2007, Excisional Biopsy on the Right side. 08/16/2015, Benign Core Biopsy on the left side. 06/18/2013, Bilateral Benign Excisional Biopsy. 05/22/2013, High risk Core Biopsy on the left side. 04/03/2012, Benign Core Biopsy on the right side. Sister had breast cancer, age 62. Risk Values: Gina 5 year model risk: 4.8%. NCI Lifetime model risk: 7.4%. Prior Study Comparison: 10/18/2023 Bilateral MG 3D screening mammo w/cad, [facility]. 10/23/2023 Left MG 3D work up w/cad LT, [facility]. 05/14/2024 Left MG 3D diag mammo w/cad LT, [facility]. Tissue Density: The breasts are heterogeneously dense, which may obscure small masses. Findings: Analyzed By CAD. There is no suspicious group of microcalcifications or new suspicious mass in either breast. Overall Assessment: Benign, BI-RAD 2 Management: Screening Mammogram of both breasts in 1 year. . Patient should continue monthly self-breast exams. A clinical breast exam by your physician is recommended on an annual basis. This exam should not preclude additional follow-up of suspicious palpable abnormalities. Note on Gina scores and lifetime risk: 1. A Gina score greater than 3% is considered moderate risk. If this is the case, consider specialist referral to assess eligibility for a risk reducing agent. 2. If overall lifetime risk for the development of breast cancer is 20% or higher, the patient may qualify for future screening with alternating mammogram and breast MRI. [facility], , 12/15/2024 8:18 AM. Electronically signed and approved by: Han Mckinnon M.D. Radiologis
== END | disposition home or self-care (01) ==
LOC: RADMAMWWP 13:29
PROVIDERS: ATTEND Family Medicine
DX: Z12.31 Encounter for screening mammogram for malignant neoplasm of breast (principal); R92.333 Mammographic heterogeneous density, bilateral breasts; Z78.0 Asymptomatic menopausal state; Z80.3 Family history of malignant neoplasm of breast
CPT/HCPCS: 77063; 77067